=== PATIENT | female | born 1980 | race African-American/Black ===

== ENCOUNTER 2017-02-06 00:40 | Emergency (ER) | payer OTHER ==
[~2017-02-06] VITALS: Ht 172.7 cm; Wt 163.8 kg
[~2017-02-06 00:40] MED LIST: CEFDINIR300 MG PO; COLACE100 MG PO; ELIMITE 5% CREA60 GM TP; FLEXERIL10 MG PO; INDOCIN25 MG PO; KEFLEX500 MG PO; KENALOG,ARISTOC15 G2 TP; MOTRIN800 MG PO; NAPROSYN500 MG PO; NORCO 5/3251 TABLET PO; PEN-VEE K,VEET500 MG PO; PREDNISONE20 MG PO; PRILOSEC40 MG PO; PROMETHAZINE HC25 M1 PO; ROBITUSSIN7.5 MG/5 M PO; ULTRAM50 MG PO; VALIUM5 MG PO; ZOFRAN ODT4 MG PO
[2017-02-06] MEDS ORDERED: BENADRYL50 MG PO (03:26)
[2017-02-06 03:45] VITALS: BP 145/93
== END 2017-02-06 03:45 | disposition home or self-care (01) ==
LOC: EME 00:40
DX: S80.869A Insect bite (nonvenomous), unspecified lower leg, initial encounter (principal); S40.869A Insect bite (nonvenomous) of unspecified upper arm, initial encounter; S20.96XA Insect bite (nonvenomous) of unspecified parts of thorax, initial encounter; W57.XXXA Bitten or stung by nonvenomous insect and other nonvenomous arthropods, initial encounter; R05 Cough; F17.200 Nicotine dependence, unspecified, uncomplicated
CPT/HCPCS: 71010; 99281; 99284

== ENCOUNTER 2017-08-09 10:08 | Emergency (ER) | payer OTHER ==
[~2017-08-09] VITALS: Ht 172.7 cm; Wt 165.1 kg
[~2017-08-09 10:08] MED LIST changes: +BENADRYL50 MG PO
[2017-08-09] MEDS ORDERED: MOTRIN600 MG PO (11:05)
[2017-08-09] MEDS ORDERED: FLEXERIL5 MG PO (11:05)
[2017-08-09 11:11] VITALS: BP 143/98
== END 2017-08-09 11:40 | disposition home or self-care (01) ==
LOC: EME 10:08
DX: S39.012A Strain of muscle, fascia and tendon of lower back, initial encounter (principal); M54.2 Cervicalgia; V49.50XA Passenger injured in collision with unspecified motor vehicles in traffic accident, initial encounter; Y92.410 Unspecified street and highway as the place of occurrence of the external cause; J02.9 Acute pharyngitis, unspecified; F17.200 Nicotine dependence, unspecified, uncomplicated
CPT/HCPCS: 99281; 99282